=== PATIENT | male | born 1995 | race Caucasian/White ===

== ENCOUNTER 2017-03-31 16:11 | Emergency (ER) | payer MEDICAID ==
[2017-03-31 16:31] VITALS: BP 128/86; PULSE 89; RESP 18; TEMP 98.3; O2SAT 98
--- NOTE | 2017-03-31 17:14 | C.PDOC ---
History Of Present Illness 21 year old male who presents to the ER with a complaint of left knee pain since Thursday. Patient states Thursday night he was walking down a hill and hyper extended his left knee; he states he felt his knee "buckle" under him. Patient reports he tore his meniscus and ACL of his right knee a few years ago which required surgery and is afraid something similar has happened with his left knee. Patient reports taking ibuprofen at home with mild relief and denies any need for pain medication at this time. Denies weakness or numbness. Time Seen by Provider: 03/31/17 16:55 Chief Complaint (Nursing): Lower Extremity Problem/Injury History Per: Patient History/Exam Limitations: no limitations Onset/Duration Of Symptoms: Days Current Symptoms Are (Timing): Still Present Recent travel outside of the [place]: No - Knee Description Of Injury: Other (Hyperextended) Past Medical History Reviewed: Historical Data, Nursing Documentation, Vital Signs Vital Signs: Last Vital Signs Temp 98.3 F 03/31/17 16:28 Pulse 89 03/31/17 16:28 Resp 18 03/31/17 16:28 BP 128/86 03/31/17 16:28 Pulse Ox 98 03/31/17 18:06 - Medical History PMH: Anxiety Surgical History: No Surg Hx Family History: States: Unknown Family Hx - Social History Hx Alcohol Use: No Hx Substance Use: No - Immunization History Hx Tetanus Toxoid Vaccination: No Hx Influenza Vaccination: No Hx Pneumococcal Vaccination: No Review Of Systems Musculoskeletal: Positive for: Leg Pain Neurological: Negative for: Weakness, Numbness Physical Exam - Physical Exam Appears: Non-toxic, No Acute Distress Skin: Normal Color, Warm, Dry Head: Atraumatic, Normacephalic Extremity: Swelling (Mild to left knee), Other (Decreased flexion due to pain, normal extention.) Pulses: Left Dorsalis Pedis: Normal, Right Dorsalis Pedis: Normal Neurological/Psych: Oriented x3, Normal Speech, Normal Cognition, Normal Motor, Normal Sensation ED Course And Treatment O2 Sat by Pulse Oximetry: 98 Medical Decision Making Medical Decision Making: knee xr- no acute fracture Disposition - Disposition Referrals: Karuna Olivia MD [Staff Provider] - Disposition: HOME/ ROUTINE Disposition Time: 18:06 Condition: GOOD Additional Instructions: Please follow up with equipment specialist. Return to the ER for any worsening symptoms or for any other concerns. Prescriptions: Ibuprofen [Motrin Tab] 800 mg PO Q8H PRN #10 tab PRN Reason: Pain, Moderate (4-7) Forms: General Discharge Instructions, [facility] (Armenian), Work Excuse - Clinical Impression Clinical Impression: Knee injury - Scribe Statement The provider has reviewed the documentation as recorded by the Scribe Lauri Fowler All medical record entries made by the Scribe were at my direction and personally dictated by me. I have reviewed the chart and agree that the record accurately reflects my personal performance of the history, physical exam, medical decision making, and the department course for this patient. I have also personally directed, reviewed, and agree with the discharge instructions and disposition.
--- NOTE | 2017-03-31 18:01 | RAD ---
PROCEDURE: Left Knee Radiographs. HISTORY: COMPARISON: None available. FINDINGS: BONES: No acute displaced fracture. JOINTS: No dislocation. JOINT EFFUSION: Small suprapatellar joint effusion. OTHER FINDINGS: Ill-defined density in the expected location of the popliteal fossa; correlate clinically for fluid. IMPRESSION: Small suprapatellar joint effusion. Ill-defined density in the expected location of the popliteal fossa; correlate clinically for fluid. No acute displaced fracture or dislocation identified.If symptoms persist, or if there is continued clinical concern, x-ray follow-up in 7-10 days should be considered.
== END 2017-03-31 18:27 | disposition home or self-care (01) ==
LOC: C.ER 16:11
DX: S89.92XA Unspecified injury of left lower leg, initial encounter (principal); X58.XXXA Exposure to other specified factors, initial encounter; Y93.01 Activity, walking, marching and hiking